=== PATIENT | male | born 1970 | race American Indian/Alaskan Native ===

== ENCOUNTER 2018-07-11 10:57 | Emergency (ER) | payer BC ==
[2018-07-11 11:05] VITALS: BP 161/97; PULSE 101; RESP 20; TEMP 98.2; O2SAT 99
--- NOTE | 2018-07-11 11:21 | C.PDOC ---
History Of Present Illness 48 year old male presents to the ED complaining of "bumps to penis" for a few days. Patient reports he is sexually active with the same partner and does not use protection. He denies any dysuria or discharge. Time Seen by Provider: 07/11/18 11:11 Chief Complaint (Nursing): Male Genitourinary History Per: Patient History/Exam Limitations: no limitations Onset/Duration Of Symptoms: Days Current Symptoms Are (Timing): Still Present Past Medical History Reviewed: Historical Data, Nursing Documentation, Vital Signs Vital Signs: Last Vital Signs Temp 98.2 F 07/11/18 11:02 Pulse 101 H 07/11/18 11:02 Resp 20 07/11/18 11:02 BP 161/97 H 07/11/18 11:02 Pulse Ox 99 07/11/18 11:26 - Medical History PMH: HTN Surgical History: No Surg Hx Family History: States: No Known Family Hx - Social History Hx Alcohol Use: No Hx Substance Use: No - Immunization History Hx Tetanus Toxoid Vaccination: No Hx Influenza Vaccination: Yes (2017) Hx Pneumococcal Vaccination: No Review Of Systems Except As Marked, All Systems Reviewed And Found Negative. Genitourinary: Positive for: Other ("bumps to penis" ). Negative for: Dysuria, Penile Discharge Physical Exam - Physical Exam Appears: Non-toxic, No Acute Distress Skin: Warm, Dry Head: Normacephalic Eye(s): bilateral: Normal Inspection Nose: Normal Oral Mucosa: Moist Neck: Normal ROM Chest: Symmetrical Male Genital: No Normal Inspection (Distal foreskin swelling and numerous vesicles to penis ) Neurological/Psych: Oriented x3, Normal Speech Gait: Steady ED Course And Treatment O2 Sat by Pulse Oximetry: 99 (RA) Pulse Ox Interpretation: Normal Medical Decision Making Medical Decision Making: genital herpes Orders: - Zovirax 800mg PO - Labwork pt counseled on safe sex. adivse outpt fu with urology, antiviral initiated.d Disposition - Disposition Referrals: Frandy Lomeli Jr., MD [Staff Provider] - Disposition: HOME/ ROUTINE Disposition Time: 11:00 Condition: STABLE Additional Instructions: follow up with specialist. you may need further testing as an outpatient. return to any er with worsening. Prescriptions: RX: Acyclovir [Zovirax] 400 mg PO Q8 #21 tab Instructions: Genital Herpes (DC), Screening for Sexually Transmitted Infections Forms: [facility] (Par[place]ayan) - Clinical Impression Clinical Impression: Herpes - Scribe Statement The provider has reviewed the documentation as recorded by the Scribe Alyx dEwards All medical record entries made by the Glenibe were at my direction and personally dictated by me. I have reviewed the chart and agree that the record accurately reflects my personal performance of the history, physical exam, medical decision making, and the department course for this patient. I have also personally directed, reviewed, and agree with the discharge instructions and disposition.
== END 2018-07-11 11:37 | disposition home or self-care (01) ==
LOC: C.ER 10:57
DX: A60.00 Herpesviral infection of urogenital system, unspecified (principal)